=== PATIENT | male | born 1960 | race Two or more races ===

== ENCOUNTER 2023-08-18 20:22 | Inpatient (IN) | payer OTHER ==
[~2023-08-18] VITALS: Ht 167.6 cm; Wt 68.0 kg
[2023-08-18 22:17] LABS: ABG PH 7.402 (7.35-7.45); ABG PO2 82.1 mmHg (80-100); ABG pCO2 35.8 mmHg (35-45); BASE EXCESS -2.3 mmol/l; BICARBONATE 21.8 mmol/l (23-25); SaO2 95.9 %; Tco2 22.9 mmol/l
[2023-08-18 22:23] LABS: allen test SATISFACTORY; o2 21 %; puncture site RADIAL LEFT
[2023-08-18 22:25] LABS: URINE APPEARANCE Clear; URINE BILIRRUBIN Small (NEGATIVE); URINE BLOOD Negative; URINE COLOR Dark Yellow; URINE GLUCOSE Negative (NEGATIVE); URINE LEUKOCYTE Negative; URINE NITRATE Negative
[2023-08-18 22:42] LABS: URINE BACTERIA 153.7 uL (0.0-1933); URINE EPITHELIAL CELLS 14.5 uL (0.0-38.8); URINE RBC 11.2 uL (0.0-20.8); URINE WBC 75.5 uL (0.0-23.2)
[2023-08-18 22:53] LABS: URINE PROTEIN 100 (NEGATIVE)
[2023-08-18 23:12] LABS: HEMATOCRIT 33.1 % (39.0-48.0); HEMOGLOBIN 10.5 g/dL (13-16.00); MEAN CELL VOLUME 66.6 fL (80.0-100.00); MEAN CORPUSCULAR HEMOGLOBIN 21.1 pg (27.00-32.0); MEAN CORPUSCULAR HGB CONC 31.6 g/dl (32.0-36.0); PLATELET COUNT 360 K/uL (150-450); RED BLOOD COUNT 4.96 M/uL (4.00-6.00); RED CELL DISTRIBUTION WIDTH 32.9 % (11.5-14.5)
[2023-08-18 23:26] LABS: INR 1.34; PARTIAL THROMBOPLASTIN TIME 28.3 SECONDS (22.0-34.0); PROTHROMBIN TIME 13.8 SECONDS (9.0-11.5)
[2023-08-19 00:26] LABS: ALBUMIN 1.7 gm/dL (3.4-5.0); BILIRUBIN TOTAL 1.22 mg/dL (0.3-1.2); CALCIUM 7.6 mg/dL (8.5-10.1); CREATININE SERUM 1.18 mg/dL (0.70-1.30); GFR 62.35; GLOBULINA 4.8 G/DL (2.4-3.5); PHOSPHOROUS 3.3 mg/dL (2.5-4.9); POTASSIUM 3.37 mEq/L (3.5-5.1); TOTAL PROTEIN 6.5 gm/dL (6.4-8.2)
[2023-08-19 14:39] LABS: CKMB 2.6 NG/ML (0.5-3.6)
[2023-08-19 19:48] LABS: PLEURAL FLUID APPEARANCE CLOUDY; PLEURAL FLUID COLOR YELLOW
[2023-08-19 19:51] LABS: GLU PLEURAL FLUID 117 mg/dl; LDH PLEURAL FLUID 35 U/L
[2023-08-19 19:53] LABS: CHOL PLEURAL FLUID < 50 mg/dl
[2023-08-19 19:54] LABS: GLU PERITONEAL FLUID 134 mg/dl; LDH PERITONEAL FLUID 87 U/L
[2023-08-19 20:14] LABS: CHOL PERITONEAL FLUID < 50 mg/dl
[2023-08-19 20:14] LABS: CKMB 3.3 NG/ML (0.5-3.6)
[2023-08-19 20:41] LABS: MONONUCLEAR 100 %
[2023-08-20 07:32] LABS: HEMOGLOBIN 9.9 g/dL (13-16.00); MEAN CELL VOLUME 68.5 fL (80.0-100.00); MEAN CORPUSCULAR HEMOGLOBIN 21.2 pg (27.00-32.0); MEAN CORPUSCULAR HGB CONC 30.9 g/dl (32.0-36.0); PLATELET COUNT 336 K/uL (150-450); RED BLOOD COUNT 4.67 M/uL (4.00-6.00); RED CELL DISTRIBUTION WIDTH 32.2 % (11.5-14.5)
[2023-08-20 07:57] LABS: CKMB 2.5 NG/ML (0.5-3.6)
[2023-08-20 07:59] LABS: ERYTHROCYTE SEDIMENTATION RATE 28 mm/hr
[2023-08-20 08:00] LABS: COL EPI 76 SECONDS (82-175)
[2023-08-20 08:20] LABS: ALBUMIN 1.5 gm/dL (3.4-5.0); BILIRUBIN TOTAL 0.83 mg/dL (0.3-1.2); CALCIUM 7.1 mg/dL (8.5-10.1); CHOL HDL RATIO 4.2 (0-5.0); CREATININE SERUM 1.08 mg/dL (0.70-1.30); GFR 69.05; GLOBULINA 4.1 G/DL (2.4-3.5); PHOSPHOROUS 3.8 mg/dL (2.5-4.9); POTASSIUM 3.8 mEq/L (3.5-5.1); PROSTATIC SPECIFIC ANTIGEN 0.363 NG/ML (0.010-4.00); TOTAL PROTEIN 5.6 gm/dL (6.4-8.2)
[2023-08-20 09:44] LABS: C-REACTIVE PROTEIN 3.33 MG/DL (0.00-0.29); MAGNESIUM 1.3 mg/dL (1.8-2.4); TSH 6.44 uIU/mL (0.358-3.74)
[2023-08-20 10:54] LABS: PLATELET ESTIMATE NORMAL (NORMAL)
[2023-08-21 07:05] LABS: PH,URINE 5.5 (5.0-8.0); URINE APPEARANCE Clear; URINE BILIRRUBIN Negative (NEGATIVE); URINE COLOR Yellow; URINE GLUCOSE Negative (NEGATIVE); URINE LEUKOCYTE Negative; URINE NITRATE Negative; URINE PROTEIN Negative (NEGATIVE); URINE UROBILINOGEN 0.2 E.U./dl
[2023-08-21 07:14] LABS: URINE BACTERIA 6.2 uL (0.0-1933); URINE RBC 13.4 uL (0.0-20.8)
[2023-08-21 07:55] LABS: URINE BLOOD TRACES; URINE WBC 1.2 uL (0.0-23.2)
[2023-08-21 09:11] LABS: CA 15-3 25.2 U/mL (0.0-25.0)
[2023-08-22 11:06] LABS: ABG PH 7.374 (7.35-7.45); ABG pCO2 46.1 mmHg (35-45); BASE EXCESS 0.6 mmol/l; BICARBONATE 26.3 mmol/l (23-25); SaO2 97.9 %; Tco2 27.7 mmol/l; allen test SATISFACTORY; o2 21 %; puncture site RADIAL RIGHT
[2023-08-22 15:06] LABS: CA 27.29 19.7 U/mL (0.0-38.6)
[2023-08-23 04:53] LABS: HEMATOCRIT 34.8 % (39.0-48.0); HEMOGLOBIN 10.7 g/dL (13-16.00); MEAN CORPUSCULAR HEMOGLOBIN 21.1 pg (27.00-32.0); MEAN CORPUSCULAR HGB CONC 30.6 g/dl (32.0-36.0); PLATELET COUNT 199 K/uL (150-450); RED BLOOD COUNT 5.05 M/uL (4.00-6.00); RED CELL DISTRIBUTION WIDTH 31.7 % (11.5-14.5)
[2023-08-23 11:02] LABS: ALBUMIN 1.6 gm/dL (3.4-5.0); BILIRUBIN TOTAL 0.68 mg/dL (0.3-1.2); CALCIUM 7.8 mg/dL (8.5-10.1); CREATININE SERUM 0.97 mg/dL (0.70-1.30); GFR 78.17; GLOBULINA 4.2 G/DL (2.4-3.5); POTASSIUM 3.65 mEq/L (3.5-5.1); T4 FREE 1.24 NG/ML (0.76-1.46); TOTAL PROTEIN 5.8 gm/dL (6.4-8.2)
[2023-08-23 11:14] LABS: TSH 5.54 uIU/mL (0.358-3.74)
[2023-08-23 15:01] LABS: MAGNESIUM 1.4 mg/dL (1.8-2.4)
[2023-08-24 06:50] LABS: ALBUMIN 1.7 gm/dL (3.4-5.0); BILIRUBIN TOTAL 0.65 mg/dL (0.3-1.2); CALCIUM 7.9 mg/dL (8.5-10.1); CREATININE SERUM 1.01 mg/dL (0.70-1.30); GFR 74.37; GLOBULINA 4.3 G/DL (2.4-3.5); MAGNESIUM 1.5 mg/dL (1.8-2.4); POTASSIUM 4.18 mEq/L (3.5-5.1)
[2023-08-24 22:22] LABS: ABG PO2 61.9 mmHg (80-100); ABG pCO2 41.3 mmHg (35-45); BASE EXCESS 1.4 mmol/l; SaO2 91.8 %
[2023-08-24 22:23] LABS: Tco2 27.3 mmol/l
[2023-08-24 22:26] LABS: allen test SATISFACTORY; o2 21 %; puncture site RADIAL RIGHT
[2023-08-25 08:22] LABS: HEMATOCRIT 32.3 % (39.0-48.0); HEMOGLOBIN 10.1 g/dL (13-16.00); MEAN CORPUSCULAR HEMOGLOBIN 21.4 pg (27.00-32.0); MEAN CORPUSCULAR HGB CONC 31.4 g/dl (32.0-36.0); PLATELET COUNT 297 K/uL (150-450); RED BLOOD COUNT 4.73 M/uL (4.00-6.00)
[2023-08-25 08:25] LABS: MEAN CELL VOLUME 68.3 fL (80.0-100.00)
[2023-08-25 08:42] LABS: ALBUMIN 1.6 gm/dL (3.4-5.0); CALCIUM 7.8 mg/dL (8.5-10.1); CREATININE SERUM 0.76 mg/dL (0.70-1.30); GFR 103.26; PHOSPHOROUS 3.3 mg/dL (2.5-4.9); POTASSIUM 3.7 mEq/L (3.5-5.1)
[2023-08-26 08:39] LABS: ALBUMIN 1.5 gm/dL (3.4-5.0); BILIRUBIN TOTAL 0.65 mg/dL (0.3-1.2); CREATININE SERUM 1.05 mg/dL (0.70-1.30); GFR 71.11; GLOBULINA 4.2 G/DL (2.4-3.5); PHOSPHOROUS 3.8 mg/dL (2.5-4.9); POTASSIUM 4.08 mEq/L (3.5-5.1); TOTAL PROTEIN 5.7 gm/dL (6.4-8.2)
[2023-08-26 09:04] LABS: MAGNESIUM 1.4 mg/dL (1.8-2.4)
[2023-08-29 15:35] LABS: MEAN CELL VOLUME 70.2 fL (80.0-100.00); MEAN CORPUSCULAR HGB CONC 31.3 g/dl (32.0-36.0); PLATELET COUNT 299 K/uL (150-450); RED BLOOD COUNT 4.56 M/uL (4.00-6.00)
[2023-08-29 16:07] LABS: ALBUMIN 1.6 gm/dL (3.4-5.0); BILIRUBIN TOTAL 0.99 mg/dL (0.3-1.2); CALCIUM 7.8 mg/dL (8.5-10.1); CREATININE SERUM 1.08 mg/dL (0.70-1.30); GFR 68.83; GLOBULINA 4.2 G/DL (2.4-3.5); POTASSIUM 3.34 mEq/L (3.5-5.1); TOTAL PROTEIN 5.8 gm/dL (6.4-8.2)
[2023-08-29 16:08] LABS: MAGNESIUM 1.4 mg/dL (1.8-2.4)
[2023-08-31 06:56] LABS: ALBUMIN 1.4 gm/dL (3.4-5.0); BILIRUBIN TOTAL 0.82 mg/dL (0.3-1.2); CALCIUM 7.6 mg/dL (8.5-10.1); CREATININE SERUM 0.91 mg/dL (0.70-1.30); GFR 83.88; GLOBULINA 3.9 G/DL (2.4-3.5); MAGNESIUM 1.6 mg/dL (1.8-2.4); POTASSIUM 3.47 mEq/L (3.5-5.1); TOTAL PROTEIN 5.3 gm/dL (6.4-8.2)
[2023-08-31 07:18] LABS: MEAN CELL VOLUME 70.5 fL (80.0-100.00); MEAN CORPUSCULAR HGB CONC 31.7 g/dl (32.0-36.0); PLATELET COUNT 201 K/uL (150-450)
[2023-08-31 07:19] LABS: HEMOGLOBIN 9.2 g/dL (13-16.00); MEAN CORPUSCULAR HEMOGLOBIN 22.4 pg (27.00-32.0)
[2023-09-01 09:42] LABS: ABG PH 7.339 (7.35-7.45); ABG PO2 171.3 mmHg (80-100); ABG pCO2 53.1 mmHg (35-45); BASE EXCESS 1.1 mmol/l; SaO2 99.4 %; Tco2 29.6 mmol/l
[2023-09-01 09:46] LABS: allen test SATISFACTORY; o2 32 %; puncture site RADIAL LEFT
[2023-09-03 06:49] LABS: HEMATOCRIT 30.3 % (39.0-48.0); HEMOGLOBIN 9.5 g/dL (13-16.00); MEAN CELL VOLUME 71.1 fL (80.0-100.00); MEAN CORPUSCULAR HEMOGLOBIN 22.4 pg (27.00-32.0); MEAN CORPUSCULAR HGB CONC 31.5 g/dl (32.0-36.0); PLATELET COUNT 230 K/uL (150-450); RED BLOOD COUNT 4.26 M/uL (4.00-6.00)
[2023-09-03 07:16] LABS: ALBUMIN 1.4 gm/dL (3.4-5.0); BILIRUBIN TOTAL 0.62 mg/dL (0.3-1.2); CALCIUM 7.7 mg/dL (8.5-10.1); CREATININE SERUM 0.82 mg/dL (0.70-1.30); GFR 94.59; MAGNESIUM 1.5 mg/dL (1.8-2.4); PHOSPHOROUS 3.2 mg/dL (2.5-4.9); POTASSIUM 3.11 mEq/L (3.5-5.1); RED CELL DISTRIBUTION WIDTH 31.4 % (11.5-14.5); TOTAL PROTEIN 5.4 gm/dL (6.4-8.2)
[2023-09-03 07:20] LABS: C-REACTIVE PROTEIN 4.13 MG/DL (0.00-0.29)
[2023-09-03 09:14] LABS: PROCALCITONIN 0.226 ng/ml (0.020-0.080)
[2023-09-03 09:29] LABS: CORTISOL 4.56 ug/dl
[2023-09-07 07:44] LABS: HEMATOCRIT 32.3 % (39.0-48.0); HEMOGLOBIN 10.1 g/dL (13-16.00); MEAN CELL VOLUME 72.4 fL (80.0-100.00); MEAN CORPUSCULAR HEMOGLOBIN 22.6 pg (27.00-32.0); MEAN CORPUSCULAR HGB CONC 31.2 g/dl (32.0-36.0); PLATELET COUNT 274 K/uL (150-450); RED BLOOD COUNT 4.46 M/uL (4.00-6.00)
[2023-09-07 07:49] LABS: RED CELL DISTRIBUTION WIDTH 30.8 % (11.5-14.5)
[2023-09-07 08:12] LABS: ALBUMIN 1.6 gm/dL (3.4-5.0); BILIRUBIN TOTAL 0.92 mg/dL (0.3-1.2); CALCIUM 8.1 mg/dL (8.5-10.1); CREATININE SERUM 0.79 mg/dL (0.70-1.30); GFR 98.74; GLOBULINA 4.1 G/DL (2.4-3.5); MAGNESIUM 1.5 mg/dL (1.8-2.4); PHOSPHOROUS 2.7 mg/dL (2.5-4.9); POTASSIUM 3.92 mEq/L (3.5-5.1); TOTAL PROTEIN 5.7 gm/dL (6.4-8.2)
[2023-09-07 08:13] LABS: C-REACTIVE PROTEIN 1.48 MG/DL (0.00-0.29)
[2023-09-07 08:33] LABS: T4 TOTAL 9.43 UG/DL (4.5-12.1)
[2023-09-07 08:38] LABS: TSH 4.93 uIU/mL (0.358-3.74)
[2023-09-08] MEDS ORDERED: LEVALBUTER0.31 MG/3 IH (15:46)
[2023-09-08] MEDS ORDERED: AMIODARONE HCL200 MG PO (15:50)
[2023-09-08] MEDS ORDERED: SPIRONOLACTONE25 MG PO (15:51)
[2023-09-08] MEDS ORDERED: TOPROL XL25 M1 PO (15:51)
[2023-09-08] MEDS ORDERED: LEVOTHYROXINE50 MCG PO (15:52)
[2023-09-08] MEDS ORDERED: FUROSEMIDE20 MG PO (15:52)
[2023-09-08] MEDS ORDERED: PROTEINEX-18 LI30 ML PO (15:56)
== END 2023-09-08 19:00 | disposition home or self-care (01) | DRG 682 ==
LOC: ER 20:22 → MEDI 08-19 11:53 → SEC-K 08-19 11:53 → MEDI 08-19 20:00 → SEC-K 08-19 20:27 → MEDI 08-19 20:28
PROVIDERS: General Practice; Internal Medicine; Internal Medicine Critical Care Medicine; Internal Medicine Infectious Disease; ADMIT Internal Medicine; ATTEND Internal Medicine
PROC: 0W9B3ZX Drainage of Left Pleural Cavity, Percutaneous Approach, Diagnostic (ICD-10-PCS; principal; 2023-08-19)
PROC: 0W9G3ZX Drainage of Peritoneal Cavity, Percutaneous Approach, Diagnostic (ICD-10-PCS; 2023-08-19)
PROC: 4A12X4Z Monitoring of Cardiac Electrical Activity, External Approach (ICD-10-PCS; 2023-08-19)
PROC: 0W9B3ZZ Drainage of Left Pleural Cavity, Percutaneous Approach (ICD-10-PCS; 2023-08-20)
PROC: B24BZZZ Ultrasonography of Heart with Aorta (ICD-10-PCS; 2023-08-20)
PROC: BW28ZZZ Computerized Tomography (CT Scan) of Head (ICD-10-PCS; 2023-08-24)
PROC: B030ZZZ Magnetic Resonance Imaging (MRI) of Brain (ICD-10-PCS; 2023-08-25)
PROC: 02HV33Z Insertion of Infusion Device into Superior Vena Cava, Percutaneous Approach (ICD-10-PCS; 2023-08-29)
PROC: BV44ZZZ Ultrasonography of Scrotum (ICD-10-PCS; 2023-08-30)
DX: N17.9 Acute kidney failure, unspecified (principal); A41.9 Sepsis, unspecified organism; I63.89 Other cerebral infarction; I50.23 Acute on chronic systolic (congestive) heart failure; I31.39 Other pericardial effusion (noninflammatory); R18.8 Other ascites; I42.8 Other cardiomyopathies; E46 Unspecified protein-calorie malnutrition; C78.6 Secondary malignant neoplasm of retroperitoneum and peritoneum; K76.82 Hepatic encephalopathy; F10.20 Alcohol dependence, uncomplicated; K42.9 Umbilical hernia without obstruction or gangrene; R59.0 Localized enlarged lymph nodes; D50.9 Iron deficiency anemia, unspecified; K76.89 Other specified diseases of liver; K70.9 Alcoholic liver disease, unspecified; I50.82 Biventricular heart failure; I27.20 Pulmonary hypertension, unspecified; Z20.822 Contact with and (suspected) exposure to COVID-19; E03.9 Hypothyroidism, unspecified; I50.84 End stage heart failure; N43.2 Other hydrocele; C80.1 Malignant (primary) neoplasm, unspecified; N50.89 Other specified disorders of the male genital organs; D63.0 Anemia in neoplastic disease; R41.82 Altered mental status, unspecified
CPT/HCPCS: 70544